=== PATIENT | female | born 1955 | race Caucasian/White ===

== ENCOUNTER → 2017-01-20 | Outpatient (CLI) | payer MEDICAID | END | disposition home or self-care (01) | LOC: CFH 12:55 | PROVIDERS: ATTEND Nurse Practitioner | DX: M48.05 Spinal stenosis, thoracolumbar region (principal) | CPT/HCPCS: 72148 ==

== ENCOUNTER → 2017-10-03 | Outpatient (CLI) | payer MEDICAID | END | disposition home or self-care (01) | LOC: CFH 08:09 | PROVIDERS: ATTEND Neurological Surgery | DX: M43.16 Spondylolisthesis, lumbar region (principal); M51.36 Other intervertebral disc degeneration, lumbar region; Z98.1 Arthrodesis status | CPT/HCPCS: 72110; 72131 ==

== ENCOUNTER 2018-05-13 16:09 | Emergency (ER) | payer MEDICAID ==
[~2018-05-13] VITALS: Ht 162.6 cm; Wt 50.0 kg
[2018-05-13 16:16] VITALS: BP 145/97
[2018-05-13] MEDS ORDERED: BACITRACIN ZINC OINT 500U/GM, 0.9 GM ONE (16:48)
[2018-05-13] MEDS ORDERED: DIPH,PERTUSS(ACELL),TET VAC/PF 0.5 ML IM-VACC ONE ×2 (16:48→17:00)
== END 2018-05-13 17:14 | disposition home or self-care (01) ==
LOC: ED 16:30
DX: S80.871A Other superficial bite, right lower leg, initial encounter (principal); J44.9 Chronic obstructive pulmonary disease, unspecified; W55.01XA Bitten by cat, initial encounter; Y93.K1 Activity, walking an animal; Y99.8 Other external cause status; Y92.89 Other specified places as the place of occurrence of the external cause
CPT/HCPCS: 90471; 90715; 99283

== ENCOUNTER → 2018-07-02 | Outpatient (CLI) | payer MEDICAID | END | disposition home or self-care (01) | LOC: RAD 14:28 | PROVIDERS: ATTEND Neurological Surgery | DX: M47.26 Other spondylosis with radiculopathy, lumbar region (principal) | CPT/HCPCS: 72100 ==

== ENCOUNTER → 2018-08-29 | Outpatient (CLI) | payer MEDICAID | END | disposition home or self-care (01) | LOC: RAD 16:28 | PROVIDERS: ATTEND Neurological Surgery | DX: M51.36 Other intervertebral disc degeneration, lumbar region (principal); M43.26 Fusion of spine, lumbar region | CPT/HCPCS: 72110 ==

== ENCOUNTER → 2018-11-08 | Outpatient (CLI) | payer MEDICAID | END | disposition home or self-care (01) | LOC: CFH 15:58 | PROVIDERS: ATTEND Neurological Surgery | DX: M50.223 Other cervical disc displacement at C6-C7 level (principal); M47.26 Other spondylosis with radiculopathy, lumbar region; M48.02 Spinal stenosis, cervical region; M47.812 Spondylosis without myelopathy or radiculopathy, cervical region; M85.88 Other specified disorders of bone density and structure, other site | CPT/HCPCS: 72052; 72141 ==

== ENCOUNTER 2019-08-25 20:01 | Inpatient (IN) | payer MEDICAID ==
[~2019-08-25] VITALS: Ht 162.6 cm; Wt 45.2 kg
--- NOTE | 2019-08-25 20:11 | NUR ---
Patient into room with [facility], reports shortness of breath. Patient's breath sounds wnl. Attached to monitor, blood pressure, heart rate and pulsatile oxygen normal. Patient reports still feeling a chest tightness. Patient resting, awaiting assessment by provider.
[2019-08-25] MEDS ORDERED: LORazepam 2 MG/ML, 1ML IV ONE (21:00)
[2019-08-25] MEDS ORDERED: SODIUM CHLORIDE FLUSH 10ML SYR IVF ONE (21:00)
[2019-08-25 21:12] LABS: BASOPHILS # (AUTO) 0.06 x10^3/uL (0-0.1); BASOPHILS % (AUTO) 1 % (0-1); EOSINOPHILS # (AUTO) 0.18 x10^3/uL (0-0.4); EOSINOPHILS % (AUTO) 4 % (1-7); LYMPHOCYTES # (AUTO) 1.52 x10^3/uL (1-3.4); LYMPHOCYTES % (AUTO) 29 % (22-44); MD NO; MEAN CORPUSCULAR HEMOGLOBIN 31.1 pg (27.0-34.8); MEAN CORPUSCULAR HGB CONC 31.5 g/dL (32.4-35.8); MEAN CORPUSCULAR VOLUME 98.8 fL (80-100); MEAN PLATELET VOLUME 7.8 fL (7.4-10.4); MONOCYTES # (AUTO) 0.43 x10^3/uL (0.2-0.8); MONOCYTES % (AUTO) 8 % (2-9); NEUTROPHILS # (AUTO) 3.11 x10^3/uL (1.8-6.8); NEUTROPHILS % (AUTO) 59 % (42-75); PLATELET COUNT 341 x10^3/uL (130-400); RED BLOOD COUNT 4.02 x10^6/uL (3.82-5.3); RED CELL DISTRIBUTION WIDTH 20.8 % (9.6-15.2)
[2019-08-25] MEDS ORDERED: LORazepam 2 MG/ML, 1ML ONE (21:15)
--- NOTE | 2019-08-25 21:23 | NUR ---
RN to bedside patient given anxiolytic medications per MAR. Reviewed increased fall risk precautions with patient, verbalized understanding to call patient with call light. Reoriented patient to call light system. Patient verbalized understanding.
[2019-08-25 21:25] LABS: ALANINE AMINOTRANSFERASE 173 U/L (12-78); ALBUMIN 3.2 g/dL (3.4-5.0); ANION GAP 5 mmol/L (5-15); CALCIUM 8.4 mg/dL (8.5-10.1); CHLORIDE 109 mmol/L (98-107); CREATININE 0.77 mg/dL (0.55-1.02)
[2019-08-25 21:29] LABS: ALKALINE PHOSPHATASE 152 U/L (45-117); BILIRUBIN,TOTAL 0.2 mg/dL (0.2-1.0); TROPONIN I 0.024 ng/mL (0.000-0.045)
[2019-08-25] MEDS ORDERED: ASPIRIN 81 MG TABLET CHEW PO ONE (22:30)
[2019-08-25] MEDS ORDERED: ASPIRIN 81 MG TABLET CHEW ONE (22:34)
--- NOTE | 2019-08-25 22:40 | NUR ---
Noted new order for medications. Gave medications. Patient tolerated. Resting comfortably. Awaiting disposition.
[2019-08-25] MEDS ORDERED: SODIUM CHLORIDE FLUSH 10ML SYR IVF PRN (23:00)
[2019-08-25 23:47] VITALS: BP 120/82
[2019-08-26] MEDS ORDERED: DULO60CA7 PO (00:54)
[2019-08-26] MEDS ORDERED: ONDANSETRON ODT 4 MG PO PRN (01:00)
[2019-08-26] MEDS ORDERED: hydrALAzine 20 MG/ML, 1ML IVPush PRN (01:00)
[2019-08-26] MEDS: NICOTINE 14MG/24 HR PATCH.TD24 TD SCH (01:07)
[2019-08-26] MEDS: ENOXAPARIN 40 MG/0.4 ML SQ SCH (01:07)
[2019-08-26] MEDS ORDERED: FLU VACC QS2019-20 36MOS UP/PF 0.5 ML IM-VACC ONE (02:00)
[2019-08-26 03:27] VITALS: BP 115/74
[2019-08-26 03:30] LABS: TROPONIN I 0.041 ng/mL (0.000-0.045)
[2019-08-26 07:40] VITALS: BP 116/86
[2019-08-26 09:37] LABS: AMPHETAMINE SCREEN, URINE Positive (Negative); BARBITURATE SCREEN, URINE Negative (Negative); BENZODIAZEPINE SCREEN, URINE Negative (Negative); CANNABINOID SCREEN, URINE Negative (Negative); COCAINE SCREEN, URINE Negative (Negative); METHADONE SCREEN, URINE Negative (Negative); OPIATE SCREEN, URINE Negative (Negative)
[2019-08-26 12:45] VITALS: BP 126/92
[2019-08-26] MEDS ORDERED: OMNIPAQUE 350 MG/ML, 100ML BOTTLE ONE (13:45)
[2019-08-26 19:40] VITALS: BP 130/90
[2019-08-27 01:19] VITALS: BP 125/88
[2019-08-27] MEDS: NICOTINE 14MG/24 HR PATCH.TD24 TD SCH (01:27)
[2019-08-27] MEDS: ENOXAPARIN 40 MG/0.4 ML SQ SCH (01:27)
[2019-08-27] MEDS: TEMAZEPAM 15 MG CAPSULE PO PRN ×2 (01:35→23:23)
[2019-08-27 05:31] LABS: ALANINE AMINOTRANSFERASE 138 U/L (12-78); ALBUMIN 2.8 g/dL (3.4-5.0); ANION GAP 5 mmol/L (5-15); CALCIUM 8.3 mg/dL (8.5-10.1); CHLORIDE 110 mmol/L (98-107); CREATININE 0.81 mg/dL (0.55-1.02)
[2019-08-27 05:32] LABS: BASOPHILS # (AUTO) 0.08 x10^3/uL (0-0.1); BASOPHILS % (AUTO) 1 % (0-1); EOSINOPHILS # (AUTO) 0.31 x10^3/uL (0-0.4); EOSINOPHILS % (AUTO) 5 % (1-7); LYMPHOCYTES # (AUTO) 2.05 x10^3/uL (1-3.4); LYMPHOCYTES % (AUTO) 34 % (22-44); MD NO; MEAN CORPUSCULAR HEMOGLOBIN 30.9 pg (27.0-34.8); MEAN CORPUSCULAR HGB CONC 31.2 g/dL (32.4-35.8); MEAN CORPUSCULAR VOLUME 99.3 fL (80-100); MEAN PLATELET VOLUME 8.1 fL (7.4-10.4); MONOCYTES # (AUTO) 0.59 x10^3/uL (0.2-0.8); MONOCYTES % (AUTO) 10 % (2-9); NEUTROPHILS # (AUTO) 3.08 x10^3/uL (1.8-6.8); NEUTROPHILS % (AUTO) 50 % (42-75); PLATELET COUNT 317 x10^3/uL (130-400); RED BLOOD COUNT 3.94 x10^6/uL (3.82-5.3); RED CELL DISTRIBUTION WIDTH 21.5 % (9.6-15.2)
[2019-08-27 05:33] LABS: ALKALINE PHOSPHATASE 130 U/L (45-117); BILIRUBIN,TOTAL 0.2 mg/dL (0.2-1.0); TOTAL PROTEIN 5.5 g/dL (6.4-8.2)
[2019-08-27 08:07] VITALS: BP 125/89
[2019-08-27] MEDS ORDERED: REGADENOSON 0.4 MG/5 ML SYRINGE ONE (08:20)
[2019-08-27] MEDS: DOCUSATE 100 MG CAPSULE PO PRN (12:10)
[2019-08-27 13:33] VITALS: BP 145/101
[2019-08-27] MEDS: ASPIRIN 81 MG TABLET EC PO SCH (13:56)
[2019-08-27] MEDS: CARVEDILOL 3.125 MG TABLET PO SCH ×2 (13:56→20:42)
[2019-08-27] MEDS: FUROSEMIDE 20 MG/2 ML IV SCH ×2 (14:49→20:42)
[2019-08-27] MEDS: LISINOPRIL 5 MG TABLET PO SCH (14:54)
[2019-08-27] MEDS: POTASSIUM CHLORIDE 20 MEQ TAB.ER.PRT PO SCH (17:54)
[2019-08-27 20:28] VITALS: BP 120/83
[2019-08-28] MEDS: NICOTINE 14MG/24 HR PATCH.TD24 TD SCH (00:53)
[2019-08-28] MEDS: ENOXAPARIN 40 MG/0.4 ML SQ SCH (00:53)
[2019-08-28 01:13] VITALS: BP 111/83
[2019-08-28 05:24] LABS: BASOPHILS # (AUTO) 0.16 x10^3/uL (0-0.1); BASOPHILS % (AUTO) 3 % (0-1); EOSINOPHILS # (AUTO) 0.21 x10^3/uL (0-0.4); EOSINOPHILS % (AUTO) 4 % (1-7); LYMPHOCYTES # (AUTO) 2.16 x10^3/uL (1-3.4); LYMPHOCYTES % (AUTO) 37 % (22-44); MD NO; MEAN CORPUSCULAR HEMOGLOBIN 31.3 pg (27.0-34.8); MEAN CORPUSCULAR HGB CONC 31.8 g/dL (32.4-35.8); MEAN CORPUSCULAR VOLUME 98.3 fL (80-100); MONOCYTES # (AUTO) 0.55 x10^3/uL (0.2-0.8); MONOCYTES % (AUTO) 9 % (2-9); NEUTROPHILS # (AUTO) 2.78 x10^3/uL (1.8-6.8); NEUTROPHILS % (AUTO) 47 % (42-75); PLATELET COUNT 342 x10^3/uL (130-400); RED BLOOD COUNT 4.13 x10^6/uL (3.82-5.3)
[2019-08-28 05:37] LABS: ALBUMIN 2.8 g/dL (3.4-5.0); ANION GAP 3 mmol/L (5-15); CALCIUM 8.4 mg/dL (8.5-10.1); CHLORIDE 106 mmol/L (98-107)
[2019-08-28 05:41] LABS: ALANINE AMINOTRANSFERASE 115 U/L (12-78); ALKALINE PHOSPHATASE 134 U/L (45-117); BILIRUBIN,TOTAL 0.2 mg/dL (0.2-1.0); CHOL/HDL RATIO 3.9; CHOLESTEROL, TOTAL 159 mg/dL (140-239); CREATININE 0.82 mg/dL (0.55-1.02); HDL CHOL % 26 % (28-40); HDL CHOLESTEROL (DIRECT) 41 mg/dL (40-60); LDL CHOLESTEROL,CALCULATED 97 mg/dL (54-169); LDL/HDL RATIO 2.4 (0.5-3.0); TOTAL PROTEIN 5.8 g/dL (6.4-8.2); TRIGLYCERIDES 105 mg/dL (50-200); VLDL CHOLESTEROL 21 mg/dL (0-25)
[2019-08-28 05:47] LABS: HEMOGLOBIN A1C 5.4 % (4.2-6.3)
[2019-08-28] MEDS: CARVEDILOL 3.125 MG TABLET PO SCH ×2 (06:20→17:48)
[2019-08-28] MEDS: ASPIRIN 81 MG TABLET EC PO SCH (06:20)
[2019-08-28 08:15] VITALS: BP 113/79
[2019-08-28] MEDS: FUROSEMIDE 20 MG/2 ML IV SCH ×2 (09:28→17:47)
[2019-08-28] MEDS: POTASSIUM CHLORIDE 20 MEQ TAB.ER.PRT PO SCH ×2 (09:28→17:48)
[2019-08-28] MEDS: SPIRONOLACTONE 25 MG TABLET PO SCH (09:30)
[2019-08-28] MEDS: LISINOPRIL 5 MG TABLET PO SCH (09:30)
[2019-08-28] MEDS: DOCUSATE 100 MG CAPSULE PO PRN ×2 (09:43→20:27)
[2019-08-28] MEDS: DULOXETINE 30 MG CAPSULE.DR PO SCH (12:42)
[2019-08-28 13:56] VITALS: BP 116/74
[2019-08-28] MEDS: ACETAMINOPHEN 325 MG TABLET PO PRN (14:58)
[2019-08-28 17:46] VITALS: BP 133/97
[2019-08-28 18:59] VITALS: BP 128/85
[2019-08-28] MEDS ORDERED: ATORVASTATIN 40 MG TABLET PO SCH (21:00)
[2019-08-29 00:32] VITALS: BP 106/71
[2019-08-29] MEDS: NICOTINE 14MG/24 HR PATCH.TD24 TD SCH (01:24)
[2019-08-29] MEDS: ENOXAPARIN 40 MG/0.4 ML SQ SCH (01:24)
[2019-08-29] MEDS: ACETAMINOPHEN 325 MG TABLET PO PRN (05:37)
[2019-08-29] MEDS: CARVEDILOL 3.125 MG TABLET PO SCH (05:38)
[2019-08-29] MEDS: ASPIRIN 81 MG TABLET EC PO SCH (05:38)
[2019-08-29 06:46] VITALS: BP 132/95
[2019-08-29] MEDS: POTASSIUM CHLORIDE 20 MEQ TAB.ER.PRT PO SCH (07:45)
[2019-08-29] MEDS: FUROSEMIDE 20 MG/2 ML IV SCH (07:46)
[2019-08-29] MEDS ORDERED: LISI5TAB7 PO (09:05)
[2019-08-29] MEDS ORDERED: NICO-486 TD (09:05)
[2019-08-29] MEDS ORDERED: CARV3.1212 PO (09:05)
[2019-08-29] MEDS ORDERED: ASPI81TA45 PO (09:05)
[2019-08-29] MEDS ORDERED: ATOR40TA78 PO (09:05)
[2019-08-29] MEDS ORDERED: FURO-93 PO (09:05)
[2019-08-29] MEDS ORDERED: SPIR25TA PO (09:05)
[2019-08-29] MEDS: SPIRONOLACTONE 25 MG TABLET PO SCH (09:06)
[2019-08-29] MEDS: DULOXETINE 30 MG CAPSULE.DR PO SCH (09:07)
[2019-08-29] MEDS: LISINOPRIL 5 MG TABLET PO SCH (09:08)
== END 2019-08-29 10:52 | disposition home or self-care (01) | DRG 441 ==
LOC: ED 22:25 → EDIP 22:37 → ED 22:56 → 5SO 23:45 → DCLOUNGE 08-29 10:40
PROVIDERS: ADMIT Family Medicine; ATTEND Family Medicine
DX: B17.9 Acute viral hepatitis, unspecified (principal); I50.41 Acute combined systolic (congestive) and diastolic (congestive) heart failure; F33.9 Major depressive disorder, recurrent, unspecified; E78.2 Mixed hyperlipidemia; F17.210 Nicotine dependence, cigarettes, uncomplicated; F41.9 Anxiety disorder, unspecified; G89.29 Other chronic pain; J44.9 Chronic obstructive pulmonary disease, unspecified
CPT/HCPCS: 36415; 71046; 71275; 76700; 78452; 80053; 80061; 80074; 80307; 83036; 83605; 83880; 84484; 85025; 85379; 90686; 93005; 93017; 93306; 96374; G0378; J1650; J2785; Q9967; A9502; J1940; J2060